=== PATIENT | female | born 1990 | race Caucasian/White ===

== ENCOUNTER 2018-04-09 10:37 | Emergency (ER) | payer OTHER ==
--- NOTE | 2018-04-09 11:32 | EDPHY ---
H & P Time Seen by Provider: 04/09/18 10:56 HPI/ROS: CHIEF COMPLAINT: Hypokalemia HISTORY OF PRESENT ILLNESS: 27-year-old female presents to the emergency department by private vehicle with her mother in law for hypokalemia. The patient has a history of anorexia and bulimia and has been forcefully retching for several days. She saw her primary care provider yesterday and was found to have a potassium of 2.5. She was called today and told to come to the emergency department for IV potassium. The patient currently has no pain in her chest or difficulty breathing. She denies dizziness. She has had chest pain intermittently over last few days. 2 nights ago she was drinking alcohol and had 2 syncopal episodes. She does not know if this is related REVIEW OF SYSTEMS: Constitutional: No fever, no chills. Eyes: No double or blurry vision. ENT: No sore throat. Respiratory: No cough, no shortness of breath. Cardiac: No chest pain. Gastrointestinal: No abdominal pain, vomiting or diarrhea. Genitourinary: No dysuria. Musculoskeletal: No neck or back pain. Skin: No rashes. Neurological: No headache. Past Medical/Surgical History: Eating disorder, hypokalemia, ADD, depression, anxiety Social History: Smoking Status: Current every day smoker Physical Exam: General Appearance: Alert, no distress. Mother in law at bedside. Eyes: Pupils equal and round. Extraocular motions are all intact. ENT: Mouth: Mucous membranes moist. Respiratory: No wheezing, rhonchi, or rales, lungs are clear to auscultation. Cardiovascular: Regular rate and rhythm. Gastrointestinal: Abdomen is soft and nontender, no masses, no rebound or guarding, bowel sounds normal. Neurological: Alert and oriented x 3, cranial nerves II through XII grossly intact Skin: Warm and dry, no rashes. Musculoskeletal: Nontender to palpate along the cervical, thoracic or lumbar spine. Neck is supple. Extremities: Full range of motion and no peripheral edema. Psychiatric: Patient is oriented X 3, there is no agitation. Constitutional: Initial Vital Signs Temperature (C) 36.9 C 04/09/18 10:41 Heart Rate 96 04/09/18 10:41 Respiratory Rate 16 04/09/18 10:41 Blood Pressure 89/69 L 04/09/18 10:41 O2 Sat (%) 94 06/28/18 10:41 O2 Delivery Mode Room Air Allergies/Adverse Reactions: No Known Allergies Allergy (Verified 04/09/18 10:40) Home Medications: Medication Instructions Recorded Lexapro 05/15/14 Potassium Chloride [K-Tab ER] 40 meq PO BID #20 tablet.er 04/09/18 Synthroid 04/09/18 Medical Decision Making - Diagnostics EKG Interpretation: EKG reveals normal sinus rhythm. This was reviewed by Dr. Antwan Hebert, see interpretation in trace master. ED Course/Re-evaluation: 27-year-old female with a known history of eating disorder presents to the emergency department with concerns that from her PCP regarding her hypokalemia. Yesterday she had to have blood drawn and an EKG and was called today with abnormal potassium of 2.5 in was sent to the emergency department for evaluation. The patient had no pain in her chest, she did not feel dizzy or lightheaded. She was not short of breath. She had an EKG which revealed normal sinus rhythm. Laboratory studies reveal potassium of 2.7 which is improved from yesterday of 2.5. This is also likely because she has not been retching. She was given 40 mEq of potassium p.o. With orange juice and she tolerated this well. She will be discharged with a prescription for additional potassium that she will take twice daily over the next several days and then will follow up with primary care provider to have her potassium recheck. The case was discussed with Dr. Antwan Hebert, secondary supervising physician, who did not directly evaluate the patient but agrees with treatment and plan. Differential Diagnosis: Including but not limited to electrolyte abnormality, arrhythmia, dehydration - Data Points Laboratory Results: Laboratory Results 04/09/18 11:07 04/09/18 11:07 04/09/18 04/09/18 04/09/18 11:07 11:07 11:07 WBC 6.27 10^3/uL 10^3/uL (3.80-9.50) RBC 5.24 10^6/uL 10^6/uL (4.18-5.33) Hgb 17.4 g/dL H g/dL (12.6-16.3) Hct 48.0 % H % (38.0-47.0) MCV 91.6 fL fL (81.5-99.8) MCH 33.2 pg pg (27.9-34.1) MCHC 36.3 g/dL g/dL (32.4-36.7) RDW 13.6 % % (11.5-15.2) Plt Count 231 10^3/uL 10^3/uL (150-400) MPV 8.5 fL L fL (8.7-11.7) Neut % (Auto) 55.8 % % (39.3-74.2) Lymph % (Auto) 35.2 % % (15.0-45.0) [place] % (Auto) 8.3 % % (4.5-13.0) Eos % (Auto) 0.3 % L % (0.6-7.6) Baso % (Auto) 0.2 % L % (0.3-1.7) Nucleat RBC Rel Count 0.0 % % (0.0-0.2) Absolute Neuts (auto) 3.50 10^3/uL 10^3/uL (1.70-6.50) Absolute Lymphs (auto) 2.21 10^3/uL 10^3/uL (1.00-3.00) Absolute Monos (auto) 0.52 10^3/uL 10^3/uL (0.30-0.80) Absolute Eos (auto) 0.02 10^3/uL L 10^3/uL (0.03-0.40) Absolute Basos (auto) 0.01 10^3/uL L 10^3/uL (0.02-0.10) Absolute Nucleated RBC 0.00 10^3/uL 10^3/uL (0-0.01) Immature Gran % 0.2 % % (0.0-1.1) Immature Gran # 0.01 10^3/uL 10^3/uL (0.00-0.10) Sodium 137 mEq/L mEq/L (135-145) Potassium 2.7 mEq/L L* mEq/L (3.3-5.0) Chloride 88 mEq/L L mEq/L (97-110) Carbon Dioxide 34 mEq/l H mEq/l (22-31) Anion Gap 15 mEq/L mEq/L (8-16) BUN 8 mg/dL mg/dL (7-23) Creatinine 0.6 mg/dL mg/dL (0.6-1.0) Estimated GFR > 60 Glucose 98 mg/dL mg/dL (70-100) Calcium 9.8 mg/dL mg/dL (8.5-10.4) Beta HCG, Qual NEGATIVE Medications Given: Discontinued Medications Potassium Chloride (Klor Packets) 40 meq PO EDNOW ONE Stop: 04/09/18 11:43 Last Admin: 04/09/18 11:59 Dose: 40 meq Departure - Departure Disposition: Home, Routine, Self-Care Clinical Impression: Hypokalemia Condition: Good Instructions: Hypokalemia (ED) Additional Instructions: Continue oral potassium as directed. Follow up with her primary care provider on Friday to recheck your potassium. Referrals: Alanis Salvador DO [Doctor of Osteopathy] - 2-3 days without fail (Primary care provider wardsperson) Prescriptions: Potassium Chloride [K-Tab ER] 40 meq PO BID #20 tablet.er
[2018-04-09 11:35] LABS: PLATELET COUNT 231 10^3/uL (150-400)
--- NOTE | 2018-04-09 11:38 | CPEKG ---
Heart Rate: 74 RR Interval: 811 P-R Interval: 152 QRSD Interval: 86 QT Interval: 424 QTC Interval: 471 P Kremlin: 59 QRS [place]: 94 T Wave Kremlin: 15 EKG Severity - OTHERWISE NORMAL ECG - EKG Impression: SINUS RHYTHM EKG Impression: BORDERLINE RIGHT AXIS DEVIATION Electronically Signed By: Antwan Hebert 09-Apr-2018 14:57:15
[2018-04-09] MEDS ORDERED: POTASSIUM CL 20 MEQ PKT PO ONE (11:42)
[2018-04-09 13:31] VITALS: BP 114/70
== END 2018-04-09 13:31 | disposition home or self-care (01) ==
DX: E87.6 Hypokalemia (principal); F17.200 Nicotine dependence, unspecified, uncomplicated